=== PATIENT | female | born 1960 | race Hispanic/Latino ===

== ENCOUNTER 2017-08-26 23:33 | Inpatient (IN) | payer OTHER ==
[~2017-08-26] VITALS: Ht 152.4 cm; Wt 56.2 kg
[~2017-08-26 23:33] MED LIST: IRON PO; KEFLEX500 MG PO; MULTIVITAMINS1 EAC4 PO; TYLENOL WITH C1 EACH PO; VITAMIN C1000 MG PO; VITAMIN D PO; [UNRECOGNIZED DRUG - OTHER] PO
[2017-08-27] VITALS (7 sets, daily range): BP systolic 103–152; BP diastolic 57–83
[2017-08-27 00:15] LABS: BASOPHILS % 0.7 % (0.0-1.0); EOSINOPHILS # (AUTO) 0.1 (0.0-0.4); HEMATOCRIT 38.2 % (34.2-44.1); HEMOGLOBIN 12.2 g/dL (12.0-16.0); LYMPHOCYTES # (AUTO) 1.5 (1.0-3.2); LYMPHOCYTES % 26.6 % (18.0-39.1); MEAN CORPUSCULAR HGB CONC 31.9 g/dL (31-35); MEAN CORPUSCULAR VOLUME 97.2 fL (81-99); MONOCYTES # (AUTO) 0.4 (0.2-0.8); MONOCYTES % 6.1 % (4.4-11.3); NEUTROPHILS # (AUTO) 3.7 (2.1-6.9); NEUTROPHILS % 65.4 % (38.7-80.0); PLATELET COUNT 154 x10e3/uL (140-360); RED BLOOD COUNT 3.93 x10e6/uL (3.6-5.1)
[2017-08-27 00:19] LABS: INR 0.94
[2017-08-27 00:20] LABS: PARTIAL THROMBOPLASTIN TIME 29.9 seconds (23.8-35.5)
[2017-08-27 00:27] LABS: ALANINE AMINOTRANSFERASE 30 IU/L (0-55); ALBUMIN 3.6 g/dL (3.5-5.0); ALBUMIN/GLOBULIN RATIO 0.9 (0.8-2.0); ALKALINE PHOSPHATASE 91 IU/L (40-150); ANION GAP 12.3 mmol/L (8-16); BLOOD UREA NITROGEN 8 mg/dL (7-26); BUN/CREATININE RATIO 12 (6-25); CALCIUM 9.1 mg/dL (8.4-10.2); CARBON DIOXIDE 28 mmol/L (22-29); CHLORIDE 105 mmol/L (98-107); CREATINE KINASE 64 IU/L (29-168); CREATININE, SERUM 0.68 mg/dL (0.57-1.11); EST GLOMERULAR FILTRATION RATE > 60 ML/MIN (60-); GLUCOSE 94 mg/dL (74-118); POTASSIUM 3.3 mmol/L (3.5-5.1); SODIUM 142 mmol/L (136-145)
--- NOTE | 2017-08-27 00:45 | Diagnostic Imaging Report ---
CHEST SINGLE (PORTABLE), 08/27/2017 12:08 AM Technique: CHEST SINGLE (PORTABLE) Comparison: None available. Clinical history: Palpitations Findings: See Impression Impression: 1. Lines/Tubes: Right port tip at the cavoatrial junction. 2. Normal cardiomediastinal silhouette. 3. Mild linear right basilar atelectasis or scarring. No consolidation. 3. No pleural effusion or pneumothorax. Signed by: Dr Zandra King MD on 08/27/2017 12:41 AM
[2017-08-27 00:49] LABS: THYROID STIMULATING HORMONE 1.967 uIU/mL (0.350-4.940); TROPONIN I 0.001 ng/mL (0-0.300)
[2017-08-27] MEDS ORDERED: POTASSIUM CHLORIDE 20 MEQ TAB CR PO STA (01:37)
[2017-08-27] MEDS ORDERED: ONDANSETRON HCL INJ 2 MG/ML VIAL IV PRN ×2 (01:45→12:30)
[2017-08-27] MEDS: FAMOTIDINE 20 MG/2 ML VIAL IV SCH ×2 (02:33→12:46)
[2017-08-27] MEDS: ASPIRIN 81 MG ENTERIC COATED PO SCH (08:54)
[2017-08-27 10:45] LABS: CREATINE KINASE 51 IU/L (29-168)
[2017-08-27 10:52] LABS: TROPONIN I < 0.001 ng/mL (0-0.300)
[2017-08-27] MEDS ORDERED: TRAMADOL HCL 50 MG TAB PO PRN (12:30)
[2017-08-27] MEDS: ACETAMINOPHEN 325 MG TAB PO PRN (12:32)
[2017-08-27] MEDS ORDERED: SODIUM CHLORIDE 0.9% 250ML 250 ML ONE (12:40)
[2017-08-27 12:59] LABS: BILIRUBIN,URINE NEGATIVE (NEGATIVE); KETONES,URINE NEGATIVE (NEGATIVE); LEUKOCYTE ESTERASE ,URINE NEGATIVE (NEGATIVE); NITRITE,URINE NEGATIVE (NEGATIVE); PROTEIN,URINE DIPSTICK NEGATIVE (NEGATIVE); URINE UROBILINOGEN 0.2 mg/dL (0.2 - 1)
[2017-08-27 13:04] LABS: CLARITY,URINE SL CLOUDY (CLEAR); COLOR,URINE YELLOW (YELLOW)
[2017-08-27 13:16] LABS: EPITHELIAL CELLS,URINE FEW /LPF; RBC,URINE 0-5 /HPF (0-5); TRANSITIONAL EPI CELLS,URINE FEW; WBC,URINE (MAN) 0-5 /HPF (0-5)
--- NOTE | 2017-08-27 13:27 | Diagnostic Imaging Report ---
CT chest without enhancement CPT code: 74228 INDICATION: Fever TECHNIQUE: Thin collimation axial images obtained from the thoracic inlet to the level of the diaphragm without intravenous contrast. RADIATION DOSE: Total DLP: 425 mGy*cm Estimated effective dose: (DLP x 0.015 x size factor) mSv CTDIvol has been reviewed. It is below the limits set by the Radiation Protocol Committee (RPC). COMPARISON: Chest x-ray 08/26/2017. CHEST FINDINGS: Lymph nodes: There are enlarged left axillary lymph nodes measuring up to 2.5 x 3.0 cm. There are no enlarged right axillary lymph nodes. No enlarged supraclavicular, mediastinal, or hilar lymph nodes. Thyroid: Normal in size without mass in the visualized parenchyma.. Mediastinum: MediPort catheter terminates in the SVC. The heart is top normal in size. The ascending aorta is ectatic. There is a moderate sized hiatal hernia. No pericardial effusion. Coronary artery calcifications are present. Lungs: Right: Soft tissue mass in the superior middle lobe measures 1.9 x 1.9 cm. This abuts the minor fissure. There are multiple groundglass nodular opacities in the lower lobe with associated bronchial wall thickening. No disha consolidation. Left: No evidence of mass or infiltrate. A few foci of atelectasis are in the posterior costophrenic angle. Pleura: No pleural effusion or pleural based mass. Airways: Clear. ABDOMEN FINDINGS: Visualized portions of the liver, spleen, pancreas, gallbladder, adrenal glands, and kidneys are unremarkable. Bones: There are no lytic or blastic lesions. IMPRESSION: 1. Inflammatory appearing nodules in the right lower lobe with associated bronchial wall thickening suggestive of bronchopneumonia. 2. Left axillary lymphadenopathy and mass in the right middle lobe suggestive of metastatic disease. 3. Moderate sized hiatal hernia. Signed by: Dr. Jbe Fraire MD on 08/27/2017 1:24 PM
[2017-08-27] MEDS: AZITHROMYCIN 250MG/NS 100 ML 100 ML IV SCH (13:37)
[2017-08-27] MEDS: PIPER-TAZ 3.375 GM 100 ML IV SCH ×2 (14:11→23:24)
[2017-08-27 18:06] LABS: CREATINE KINASE MB 0.3 ng/mL (0.00-5.00); TROPONIN I 0.008 ng/mL (0-0.300)
--- NOTE | 2017-08-27 18:21 | History and Physical ---
CHIEF COMPLAINT: Palpitations and fever. HPI: Ms. Tin Nieves is a pleasant 57-year-old female. She has stage III breast cancer and is under treatment at [facility]. She presented with palpitations to the emergency room. She also has had some dizziness, so she decided to come to the emergency room. She is complaining of cough productive of greenish phlegm that started yesterday and also chills. She got her last chemotherapy 3 weeks ago, and she is on anastrozole as well. She denies any chest pain, nausea, vomiting, abdominal pain, focal weakness. REVIEW OF SYSTEMS GENERAL: Is having fever and chills. HEENT: Denies any head trauma or head injury. ENT: Denies any earache, nosebleed, throat pain. CV: Denies any chest pain. RESPIRATORY: Denies any shortness of breath. GI: Denies any nausea or vomiting. The rest of the review of systems are negative, except as in HPI. PAST MEDICAL HISTORY: Stage III breast cancer under treatment at [facility]. No other medical problems. PAST SURGICAL HISTORY: Left mastectomy. 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 She is a life-long nonsmoker. Does not drink. Lives with her . She has 2 children. PHYSICAL EXAMINATION VITAL SIGNS: Temperature 99.1, pulse 72, blood pressure 146/66, and temperature now is 101. SKIN: Warm and dry. HEENT: Head atraumatic and normocephalic. Pupils reactive. NECK: Supple. No JVD. Thyroid not enlarged. CHEST: Crackles bilaterally. Crackles on the right base. HEART: S1 and S2 audible. No murmurs, gallops or rubs. Regular. ABDOMEN: Soft, nontender and nondistended. EXTREMITIES: No clubbing, cyanosis or edema. NEUROLOGICAL: Awake and alert. Following commands. Responds to questions appropriately. LABS: White count of 5.7, hemoglobin 12.2 and platelets 154,000. Chemistry: Sodium 142, potassium 3.3, chloride 105, BUN 8, creatinine 0.6. AST and ALT 36 and 30. Troponin has been negative. EKG showing sinus bradycardia. No other abnormalities. Chest x-ray, I have reviewed the images. It is showing no focal infiltrate. ASSESSMENT AND PLAN: Ms. Tin Nieves is a 57-year-old female that presented with palpitations, now having cough productive of greenish phlegm, chills. She is under treatment for breast cancer at [facility]. Receiving chemotherapy. Last one was 3 weeks ago. She has not received any influenza vaccination. CURRENT PROBLEMS 1. Fever, chills, palpitations and cough: Chest x-ray is not suggestive of any clear-cut pneumonia. However, lower lobe pneumonia can be missed on chest x-ray. Possibility of influenza is also there. 2. Breast cancer, under treatment: Receiving chemotherapy. 3. Palpitations which has resolved. PLAN 1. I will start the patient on IV Zosyn and azithromycin to cover pneumonia. The patient is at risk of getting infection from resistant organism because she is getting chemotherapy. 2. ID consult. 3. Oncology consult. 4. Cardiology consult for palpitations. EKG initially showing sinus bradycardia. Job#: [id number] SC
[2017-08-28] VITALS (7 sets, daily range): BP systolic 115–142; BP diastolic 59–85
--- NOTE | 2017-08-28 05:08 | Consultation ---
DATE OF CONSULTATION: August 27, 2017 CARDIOLOGY CONSULTATION Thank you for this consultation. IMPRESSION 1. Palpitations. 2. Some atypical chest pain. 3. History of breast cancer, left mastectomy in 2016. Underwent chemotherapy. 4. Patient with metastasis of the liver. 5. Possible pneumonitis. 6. Hypertension. 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 History of hypertension. No history of myocardial infarction or symptoms of congestive heart failure. The palpitations happened yesterday. Patient is undergoing chemotherapy at [facility]. Patient has a mastectomy in 2016 at this hospital. Also, the patient has metastasis in the liver and possible pneumonitis in the lungs at this time. Health Claims Examiner is taking care of the pulmonary issues. At this time, evaluate cardiac status. No previous history of any cardiac issues. The patient had an echocardiogram done at [facility]. Clinically, no pericardial rub or congestive heart failure or 3rd heart sound or murmur. No pedal edema. EKG is normal. Laboratory evaluation shows WBC count of 5.72. Troponin is normal. Renal functions are normal. Electrolytes with potassium low and being replaced at this time. At this point, patient is quite stable. Because of the chemotherapy, some of the medications affect the LV function. I am going to order an echocardiogram. Also, the patient needs to have a Lexiscan stress test, which will be done on Tuesday if he is staying. We can do it in the hospital. If he is leaving, probably can do as an outpatient. I scheduled both of these tests at this time. The patient will continue present medications. There is no cardiac arrhythmia noted in this hospital at this time. Job#: [id number] OR
--- NOTE | 2017-08-28 05:17 | Consultation ---
DATE OF CONSULTATION: REASON FOR CONSULTATION: Fever. HPI: This patient who is a very pleasant 57-year-old female who has history of breast cancer with metastasis to the liver for a couple of years. She is on chemotherapy now. She is coming with 2 days' history of fever and chills. Her heart was beating fast, she said. Not feeling well. Patient came to the emergency room. She was admitted. She says she also has lung metastasis. Patient is currently lying in bed comfortably. Her main complaints are fever and chills. PAST MEDICAL HISTORY: Breast cancer stage 3, under chemotherapy. PAST SURGICAL HISTORY: Left mastectomy, Port-A-Cath on the right side, subcutaneous. ALLERGIES: NKA. SOCIAL HISTORY: There is no smoking, drug abuse, or alcohol use. FAMILY HISTORY: hypertension. REVIEW OF SYSTEMS HEENT: There is no headache, visual changes or hearing change. GI: There is no nausea, no vomiting, no diarrhea. CARDIAC: There is no arrhythmia. NEURO: No seizure activity. SKIN: There is no other rash. GENERAL: She just feels fever and chills and bad for last 2 days. LABS: White count 5.7, hemoglobin 12.2. Her sodium 142, potassium 3.3, creatinine 0.68. Patient was started on antibiotics. She is on Zosyn and azithromycin for presumptive pneumonia. She had a CT of the chest which showed inflammatory nodule in the right lower lobe with bronchial pneumonia. PHYSICAL EXAMINATION GENERAL: She is currently alert, oriented, does not seem to be in acute distress. VITALS: Stable, currently afebrile. HEENT: She does not appear icteric. NECK: Supple. CHEST: Few crackles at the bases. COR: S1 and S2. No S3 or S4, no murmur. ABDOMEN: Soft. Bowel sounds are present. No tenderness. No hepatosplenomegaly. EXTREMITIES: No edema. SKIN: There is no rash. The Port-A-Cath site, there is no erythema or edema. IMPRESSION: Fever and chills in a patient with breast cancer with metastasis. Concern about infection, pneumonia is a possibility. Will get the blood cultures. Continue with Zosyn, continue with azithromycin. We will see how she is going to do in the next couple of days. We will follow with you. Thank you for asking me to see this patient. Job#: [id number] CF
[2017-08-28] MEDS: PIPER-TAZ 3.375 GM 100 ML IV SCH ×3 (07:18→21:38)
[2017-08-28] MEDS: FAMOTIDINE 20 MG/2 ML VIAL IV SCH ×2 (07:27→14:10)
[2017-08-28 07:35] LABS: BASOPHILS % 0.2 % (0.0-1.0); EOSINOPHILS % 0.1 % (0.0-6.0); HEMATOCRIT 34.2 % (34.2-44.1); HEMOGLOBIN 11.3 g/dL (12.0-16.0); LYMPHOCYTES # (AUTO) 0.9 (1.0-3.2); LYMPHOCYTES % 9.2 % (18.0-39.1); MEAN CORPUSCULAR HEMOGLOBIN 31.3 pg (28-32); MEAN CORPUSCULAR VOLUME 94.7 fL (81-99); MONOCYTES # (AUTO) 0.4 (0.2-0.8); MONOCYTES % 4.3 % (4.4-11.3); NEUTROPHILS # (AUTO) 8.8 (2.1-6.9); PLATELET COUNT 122 x10e3/uL (140-360); RED BLOOD COUNT 3.61 x10e6/uL (3.6-5.1); RED CELL DISTRIBUTION WIDTH 16.4 % (11.7-14.4)
[2017-08-28 08:09] LABS: ANION GAP 11.3 mmol/L (8-16); BLOOD UREA NITROGEN 10 mg/dL (7-26); BUN/CREATININE RATIO 16 (6-25); CALCIUM 8.5 mg/dL (8.4-10.2); CARBON DIOXIDE 26 mmol/L (22-29); CHLORIDE 101 mmol/L (98-107); CREATININE, SERUM 0.63 mg/dL (0.57-1.11); EST GLOMERULAR FILTRATION RATE > 60 ML/MIN (60-); GLUCOSE 85 mg/dL (74-118); POTASSIUM 3.3 mmol/L (3.5-5.1); SODIUM 135 mmol/L (136-145)
[2017-08-28] MEDS: AZITHROMYCIN 250MG/NS 100 ML 100 ML IV SCH (08:19)
[2017-08-28] MEDS: ANASTROZOLE 1 MG TAB PO SCH (08:20)
[2017-08-28] MEDS: ASPIRIN 81 MG ENTERIC COATED PO SCH (08:20)
[2017-08-28 08:33] LABS: CHOL/HDL RATIO 3.8 (3.0-3.6)
[2017-08-28] MEDS: ACETAMINOPHEN 325 MG TAB PO PRN (12:14)
[2017-08-28] MEDS ORDERED: POTASSIUM CHLORIDE 20 MEQ TAB CR PO ONE (13:00)
--- NOTE | 2017-08-28 17:08 | Progress Note ---
DATE: August 28, 2017 CARDIOLOGY PROGRESS NOTE Patient is doing well. Patient moved from 1st floor to 2nd floor. Patient does not have any chest pain or palpitation, and the patient also getting antibiotics IV. Patient is a known patient with breast cancer. [facility], and she may be having metastasis of the liver, suspicion of the lung metastasis. I confine myself to cardiovascular system. The patient is not in congestive heart failure. I ordered an echocardiogram, still is not being done at this time. Patient not in acute congestive heart failure. I ordered a nuclear stress test, will be done on Tuesday. Job#: [id number] EV
[2017-08-29] VITALS (7 sets, daily range): BP systolic 121–156; BP diastolic 67–93
[2017-08-29] MEDS: FAMOTIDINE 20 MG/2 ML VIAL IV SCH ×2 (04:40→13:45)
[2017-08-29] MEDS: PIPER-TAZ 3.375 GM 100 ML IV SCH ×3 (05:21→22:06)
[2017-08-29] MEDS: ASPIRIN 81 MG ENTERIC COATED PO SCH (09:00)
[2017-08-29] MEDS: ANASTROZOLE 1 MG TAB PO SCH (09:09)
[2017-08-29] MEDS: AZITHROMYCIN 250MG/NS 100 ML 100 ML IV SCH (10:30)
[2017-08-29] MEDS ORDERED: SODIUM CHLORIDE 0.9% 250ML 250 ML ONE (14:28)
--- NOTE | 2017-08-29 22:23 | Progress Note ---
DATE: CARDIOLOGY PROGRESS NOTE Patient is seen in the room. Patient is awake and alert. Patient is quite stable. No chest pain. No tightness. Patient known case of breast cancer, getting chemotherapy, came with some atypical chest pain and shortness of breath and admitted to the hospital. Patient did not have a myocardial infarction. I am doing a nuclear stress test tomorrow. Patient's echocardiogram is not done. I believe it is going to be done tomorrow. We will continue present care. Job#: [id number]
[2017-08-30] VITALS (8 sets, daily range): BP systolic 111–164; BP diastolic 58–85
[2017-08-30] MEDS: FAMOTIDINE 20 MG/2 ML VIAL IV SCH ×2 (01:30→14:43)
[2017-08-30] MEDS: PIPER-TAZ 3.375 GM 100 ML IV SCH (05:54)
--- NOTE | 2017-08-30 06:16 | Diagnostic Imaging Report ---
EXAMINATION: CHEST 2 VIEWS INDICATION: Pneumonia COMPARISON: 08/26/2017 FINDINGS: TUBES and LINES: Right chest port is stable in good position. LUNGS: Lungs are well inflated. Lungs are clear. There is no evidence of pneumonia or pulmonary edema. PLEURA: No pleural effusion or pneumothorax. HEART AND MEDIASTINUM: The cardiomediastinal silhouette is unremarkable. BONES AND SOFT TISSUES: No acute osseous lesion. Soft tissues are unremarkable. UPPER ABDOMEN: No free air under the diaphragm. IMPRESSION: No acute thoracic abnormality. Signed by: Dr. Nile Boyer M.D. on 08/30/2017 6:12 AM
[2017-08-30] MEDS: ASPIRIN 81 MG ENTERIC COATED PO SCH (09:00)
[2017-08-30] MEDS: AZITHROMYCIN 250MG/NS 100 ML 100 ML IV SCH (09:00)
[2017-08-30] MEDS ORDERED: REGADENOSON 0.4 MG/5 ML SYR IV ONE (12:12)
--- NOTE | 2017-08-30 13:42 | Progress Note ---
DATE: CARDIOLOGY PROGRESS NOTE Patient is seen in the room. Patient does not have any significant chest pain. The patient came with palpitations. The patient has breast cancer. The patient had surgery in the past. At this time, she is undergoing chemotherapy. The patient came at this time because of palpitations and shortness of breath. Patient was advised to have a nuclear stress test, and that is being done today. It is not yet completed. If the nuclear test results are available and probably normal, maybe we will send her home tomorrow. The patient at this time has stable cardiac status. She did not have any myocardial infarction. Echo ejection fraction I do not know at this time because the echo is not done yet. It was ordered 2 days ago. Maybe they will have the people to do it today. Job#: [id number]
--- NOTE | 2017-08-30 14:30 | Progress Note ---
DATE: INFECTIOUS DISEASE PROGRESS NOTE Ms. Tin Nieves is doing better. She has no complaints. REVIEW OF SYSTEMS HEENT: Negative. PULMONARY: Negative. CARDIAC: Negative. : Negative. Her shortness of breath is better. Her cough is better. PHYSICAL EXAMINATION GENERAL: She is currently alert, oriented, does not seem to be in acute distress. VITAL SIGNS: Stable. Afebrile. HEENT: She does not appear icteric. NECK: Supple. CHEST: Clear. HEART: S1 and S2. No S3 or S4, no murmur. ABDOMEN: Soft. Bowel sounds present. No tenderness. EXTREMITIES: No edema. IMPRESSION: Fever better. Pneumonia better. From an infectious disease point of view, can switch to oral levofloxacin 500 mg p.o. daily for 5 more days. Will follow with you. Job#: [id number] MICHELL
[2017-08-30] MEDS: ANASTROZOLE 1 MG TAB PO SCH (14:43)
[2017-08-30] MEDS ORDERED: SODIUM CHLORIDE 0.9% 250ML 250 ML ONE (21:30)
[2017-08-30] MEDS: PIPER-TAZ 3.375 GM 50 ML IV SCH (21:53)
[2017-08-31] VITALS: BP 138/74
[2017-08-31] MEDS: FAMOTIDINE 20 MG/2 ML VIAL IV SCH ×2 (01:30→13:51)
[2017-08-31 04:00] VITALS: BP 144/86
[2017-08-31] MEDS: PIPER-TAZ 3.375 GM 50 ML IV SCH ×2 (06:13→14:38)
[2017-08-31 08:01] VITALS: BP 131/79
[2017-08-31] MEDS ORDERED: ASPIRIN EC81 MG PO (08:48)
[2017-08-31] MEDS ORDERED: AMOXICILLIN500 MG PO (08:48)
[2017-08-31] MEDS ORDERED: ARIMIDEX1 MG PO (08:48)
[2017-08-31] MEDS: ASPIRIN 81 MG ENTERIC COATED PO SCH (09:00)
[2017-08-31] MEDS: ANASTROZOLE 1 MG TAB PO SCH (09:00)
[2017-08-31] MEDS: AZITHROMYCIN 250MG/NS 100 ML 100 ML IV SCH (09:24)
[2017-08-31 09:50] LABS: ANION GAP 13.4 mmol/L (8-16); BLOOD UREA NITROGEN 8 mg/dL (7-26); BUN/CREATININE RATIO 12 (6-25); CALCIUM 8.6 mg/dL (8.4-10.2); CARBON DIOXIDE 24 mmol/L (22-29); CHLORIDE 108 mmol/L (98-107); CREATININE, SERUM 0.65 mg/dL (0.57-1.11); EST GLOMERULAR FILTRATION RATE > 60 ML/MIN (60-); GLUCOSE 122 mg/dL (74-118); POTASSIUM 3.4 mmol/L (3.5-5.1); SODIUM 142 mmol/L (136-145)
[2017-08-31 11:25] VITALS: BP 145/80
[2017-08-31 15:47] VITALS: BP 127/68
[2017-08-31] MEDS ORDERED: POTASSIUM CHLORIDE 20 MEQ TAB CR PO STA (18:31)
--- NOTE | 2017-08-31 20:10 | Progress Note ---
DATE: August 31, 2017 CARDIOLOGY PROGRESS NOTE The patient is doing well. The patient had echo . Nuclear test does not show any significant ischemia. LV of 60%. The patient came with palpitations. Enzymes are normal. A known patient with breast cancer, lumpectomy and also she had chemotherapy done. The patient undergoing chemotherapy treatment. Because of palpitations and atypical chest pain, nuclear test performed that did not show any significant ischemia. At this time, the patient can be discharged from cardiac point of view. Follow up with Dr. Agosto's office and also with primary care physician and cancer doctor. If any cardiac issues, she can call my office and if she wishes she can follow up with my office. The patient is to continue all present medications. Job#: [id number] GH
--- NOTE | 2017-08-31 22:13 | Discharge Summary ---
HOSPITAL COURSE: A [facility] 57-year-old woman admitted with palpitations and fever on August 28, 2017, through the emergency room. She has a history of cough, productive green sputum. Chest x-ray revealed pulmonary infiltrate. It was felt to be metastasis from breast cancer. She had liver and lung metastasis. Patient did have fever and chills and concomitant pneumonia was suspected. Patient has never smoked. She did have chest pain and underwent evaluation by Dr. Lezama, was felt to be noncardiac. She was treated with azithromycin and Zosyn. Seen in consultation by Dr. Flores, recommended oral therapy of pneumonia. She was discharged to be followed at [facility]. Discharged on amoxicillin, continue Arimidex, aspirin, and Pepcid. CJ BRYAN MD Job#: [id number]
--- NOTE | 2017-09-01 11:39 | Cardiology Report ---
DATE OF STUDY: August 30, 2017 NUCLEAR GATED MYOCARDIAL PERFUSION SCAN I supervised the test and interpreted this nuclear stress test. Myoview was injected 10 millicuries per resting protocol and 28 millicuries per stress protocol. Lexiscan was injected 0.4 mg intravenously as stress agent. Nuclear gated myocardial perfusion scan performed as per protocol in the nuclear medicine lab at [facility]. IMPRESSION: Normal gated myocardial perfusion scan. Left ventricular ejection fraction 60%. No evidence of ischemia or scar noted. Job#: [id number]
--- NOTE | 2017-09-10 14:14 | Consultation ---
DATE OF CONSULTATION: August 30, 2017 CONSULTATION TO: Dr. Suggs Ms. Castle is a 57-year-old female who has been referred to me for evaluation of breast cancer. The patient had presented with shortness of breath and bronchopneumonia. HISTORY OF PAST ILLNESS: History of stage-III left breast cancer treated at [facility]. History of metastases to the liver and the lungs. SOCIAL HISTORY: Noncontributory. FAMILY HISTORY: Noncontributory. ALLERGIES: NONE. MEDICATIONS AT THIS TIME 1. Zithromax. 2. Zosyn. 3. Pepcid. 4. Anastrozole. 5. Ondansetron. 6. Tramadol. REVIEW OF SYSTEMS HEENT: Normal. CARDIAC: Essentially normal. RESPIRATORY: Lung metastases. GI: Liver metastases. : Normal. MUSCULOSKELETAL: Normal. SKIN AND BREASTS: Stage-III left breast cancer treated. PHYSICAL EXAMINATION GENERAL: A rather thin-built female. Left axillary nodes. Left supraclavicular lymphadenopathy. HEART: Within normal limits. LUNGS: Clear. ABDOMEN: Obese. No hepatosplenomegaly. RECTAL AND VAGINAL: Examinations deferred. CENTRAL NERVOUS SYSTEM: Essentially normal. CHEST: Left mastectomy scar is seen. LABORATORY DATA: Sodium 135, potassium 3.3, chloride 101, CO2 26, BUN 10, creatinine 0.6. Hemoglobin 11.3, hematocrit 34.2, white count 10,100, platelets 122,000. Bilirubin 0.4, SGOT 36, SGPT 30, alkaline phosphatase 91. IMPRESSION 1. Stage-III left breast cancer being treated at [facility]. 2. Hypokalemia of 3.3. 3. 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 4. Bronchopneumonia. 5. Left axillary adenopathy. 6. Possible lung metastases. 7. History of metastases to the liver. PLAN: Give her best supportive care. Continue the antibiotics. Once stable, back to [facility] for followup. Job#: [id number]
== END 2017-08-31 19:57 | disposition home or self-care (01) | DRG 194 ==
LOC: ER 23:33 → ERHOLD 08-27 01:59 → IMCU 08-27 02:54 → OBSVTOIN 08-28 12:34 → MED/SURG3 08-28 13:25
PROVIDERS: ADMIT Internal Medicine; ATTEND Internal Medicine
DX: J18.0 Bronchopneumonia, unspecified organism (principal); C78.00 Secondary malignant neoplasm of unspecified lung; C78.7 Secondary malignant neoplasm of liver and intrahepatic bile duct; C50.912 Malignant neoplasm of unspecified site of left female breast; R77.1 Abnormality of globulin; E87.6 Hypokalemia; Z90.12 Acquired absence of left breast and nipple; I10 Essential (primary) hypertension; R07.89 Other chest pain
CPT/HCPCS: 36415; 71010; 71020; 71250; 78452; 80048; 80053; 80061; 81001; 82378; 82550; 82553; 82784; 83735; 84443; 84484; 85025; 85610; 85730; 87040; 87086; 87400; 93005; 93017; 93306; 96367; 99284; A9502; G0378; J2543; J7050

== ENCOUNTER 2018-04-26 21:59 | Observation (INO) | payer OTHER ==
[~2018-04-26] VITALS: Ht 157.5 cm; Wt 56.2 kg
[~2018-04-26 21:59] MED LIST changes: +AMOXICILLIN500 MG PO; +ARIMIDEX1 MG PO; +ASPIRIN EC81 MG PO
[2018-04-26 23:19] LABS: BASOPHILS % 0.5 % (0.0-1.0); EOSINOPHILS # (AUTO) 0.1 (0.0-0.4); EOSINOPHILS % 1.3 % (0.0-6.0); HEMATOCRIT 36.2 % (34.2-44.1); HEMOGLOBIN 11.3 g/dL (12.0-16.0); LYMPHOCYTES # (AUTO) 0.6 (1.0-3.2); LYMPHOCYTES % 14.1 % (18.0-39.1); MEAN CORPUSCULAR HEMOGLOBIN 31.4 pg (28-32); MEAN CORPUSCULAR HGB CONC 31.2 g/dL (31-35); MEAN CORPUSCULAR VOLUME 100.6 fL (81-99); MONOCYTES # (AUTO) 0.4 (0.2-0.8); NEUTROPHILS # (AUTO) 2.9 (2.1-6.9); NEUTROPHILS % 74.8 % (38.7-80.0); PLATELET COUNT 141 x10e3/uL (140-360); RED CELL DISTRIBUTION WIDTH 17.9 % (11.7-14.4)
[2018-04-26 23:26] LABS: BILIRUBIN,URINE NEGATIVE (NEGATIVE); CLARITY,URINE CLEAR (CLEAR); COLOR,URINE YELLOW (YELLOW); KETONES,URINE NEGATIVE (NEGATIVE); LEUKOCYTE ESTERASE ,URINE NEGATIVE (NEGATIVE); NITRITE,URINE NEGATIVE (NEGATIVE); PROTEIN,URINE DIPSTICK NEGATIVE (NEGATIVE); URINE UROBILINOGEN 0.2 mg/dL (0.2 - 1)
[2018-04-26 23:36] LABS: BACTERIA,URINE RARE /HPF; EPITHELIAL CELLS,URINE RARE /LPF
[2018-04-27] MEDS ORDERED: ASPIRIN 325 MG TAB PO ONE
[2018-04-27 00:15] LABS: ALANINE AMINOTRANSFERASE 103 IU/L (0-55); ALBUMIN 3.9 g/dL (3.5-5.0); ALBUMIN/GLOBULIN RATIO 1.2 (0.8-2.0); ALKALINE PHOSPHATASE 147 IU/L (40-150); ANION GAP 13.9 mmol/L (8-16); BLOOD UREA NITROGEN 8 mg/dL (7-26); BUN/CREATININE RATIO 11 (6-25); CALCIUM 9.8 mg/dL (8.4-10.2); CARBON DIOXIDE 29 mmol/L (22-29); CHLORIDE 103 mmol/L (98-107); CREATINE KINASE 75 IU/L (29-168); CREATININE, SERUM 0.71 mg/dL (0.57-1.11); EST GLOMERULAR FILTRATION RATE > 60 ML/MIN (60-); GLUCOSE 94 mg/dL (74-118); POTASSIUM 3.9 mmol/L (3.5-5.1); SODIUM 142 mmol/L (136-145)
[2018-04-27 00:20] LABS: INR 1.04; PROTHROMBIN TIME 12.8 seconds (11.9-14.5)
--- NOTE | 2018-04-27 01:19 | Diagnostic Imaging Report ---
EXAM: CHEST 2 VIEWS, PA and lateral INDICATION: Chest tightness COMPARISON: PA and lateral view of the chest August 30, 2017 FINDINGS: LINES/TUBES: Stable position of right subclavian tunneled chest port. LUNGS: Approximately 2.5 cm pulmonary nodule right middle lobe as seen on prior CT. PLEURA: No effusions or pneumothorax. HEART AND MEDIASTINUM: Normal size and contour. BONES AND SOFT TISSUES: Small hiatal hernia. Contrast is seen in the partially visualized colon. IMPRESSION: No interval change. Right middle lobe pulmonary nodule. Small hiatal hernia. Signed by: Dr. Heather Ross M.D. on 04/27/2018 1:15 AM
[2018-04-27] MEDS ORDERED: NITROGLYCERIN 0.4 MG SUBL SL PRN (02:45)
[2018-04-27] MEDS ORDERED: ONDANSETRON HCL INJ 2 MG/ML VIAL IV PRN (02:45)
[2018-04-27] MEDS ORDERED: FAMOTIDINE 20 MG TAB PO SCH ×2 (02:45→09:00)
[2018-04-27] MEDS ORDERED: MORPHINE SULFATE 2 MG/ML SYR IV PRN (02:45)
[2018-04-27] MEDS ORDERED: SODIUM CHLORIDE FLUSH 10 ML SYR INJ PRN (02:45)
[2018-04-27] MEDS ORDERED: SODIUM CHLORIDE 0.9% 1000ML 1,000 ML IV SCH (02:45)
[2018-04-27 03:22] VITALS: BP 152/67
[2018-04-27] MEDS ORDERED: FERROUS SULFAT325 MG PO (03:36)
[2018-04-27] MEDS: NITROGLYCERIN 2% OINT 1 GM PKT TOP SCH ×3 (06:08→18:20)
[2018-04-27 07:25] VITALS: BP 135/61
[2018-04-27 07:38] LABS: CREATINE KINASE 43 IU/L (29-168)
[2018-04-27 08:25] VITALS: BP 135/61
[2018-04-27] MEDS ORDERED: ASPIRIN 81 MG ENTERIC COATED PO SCH (09:00)
--- NOTE | 2018-04-27 11:01 | Consultation ---
DATE OF CONSULTATION: April 27, 2018 CARDIOLOGY CONSULTATION REQUESTING PHYSICIAN: Dr. Lasha Abbott. REASON FOR CONSULTATION: Chest pain. HISTORY OF PRESENT ILLNESS: This is a 58-year-old woman with history of breast cancer status post left mastectomy as well as chemotherapy and radiation with metastatic disease to the lung and liver, who presents with complaints of chest pressure. The patient reports she developed chest pressure yesterday evening around 8:30 p.m., lasting approximately an hour. The pain was 5/10 in severity and was not associated with any shortness of breath, nausea, or diaphoresis. The pain did not radiate and was better with ambulation. She denied any edema, orthopnea, PND, or lightheadedness. REVIEW OF SYSTEMS: Negative except as per HPI. PAST MEDICAL HISTORY: Breast cancer status post left mastectomy as well as chemotherapy and radiation, now with metastatic disease in the liver and lungs. PAST SURGICAL HISTORY: Mastectomy. ALLERGIES: IODINE. MEDICATIONS: Please see EMR. SOCIAL HISTORY: Denies tobacco, alcohol or illicit drugs. FAMILY HISTORY: Noncontributory. PHYSICAL EXAMINATION VITAL SIGNS: Temperature 97.5 degrees, pulse 51, respiratory rate 16, blood pressure 135/61, oxygen saturation 97% on room air. GENERAL: Well-developed, well-nourished woman. No acute distress. Awake and alert. HEENT: Normocephalic, atraumatic. Pupils equal. No scleral icterus. NECK: Supple. No thyromegaly or cervical lymphadenopathy. No carotid bruits. LUNGS: Clear to auscultation bilaterally. No wheezes or crackles. CARDIOVASCULAR: Normal rate. Regular rhythm. No murmur. Normal S1, S2. ABDOMEN: Soft, nontender. EXTREMITIES: No edema. NEURO: Nonfocal exam. EKG: Normal sinus rhythm, normal ECG. LABS: Sodium 142, potassium 3.9, chloride 102, CO2 29, BUN 8, creatinine 0.71, AST 219, ALT 103. Troponin less than 0.001. WBC 3.89, hemoglobin 11.3, hematocrit 36.2, platelets 141,000. D-dimer was 0.51. IMPRESSIONS 1. Chest pain. 2. Metastatic breast cancer with history of chemotherapy and radiation. 3. Elevated D-dimer. 4. Elevated liver function tests. RECOMMENDATIONS: Patient reports she had CT chest, abdomen, and pelvis at [facility] yesterday for staging. We will attempt to obtain these records. Given recent contrast exposure and iodine allergy, CT of the patient would not be optimal. Attempt to obtain these records. In the meantime, obtain bilateral lower extremity venous Dopplers to evaluate for any deep vein thrombosis given elevated D-dimer. Obtain echocardiogram. Patient indicates she was planning to travel out of the country later this evening. We will proceed with pharmacologic nuclear stress test for further evaluation. Thank you for this consult. We will continue to follow. Job#: [id number] LALITHA
[2018-04-27 11:39] VITALS: BP 141/73
[2018-04-27 18:22] VITALS: BP 157/71
[2018-04-27 19:30] LABS: CREATINE KINASE MB 0.6 ng/mL (0-5.0)
--- NOTE | 2018-04-27 19:37 | Cardiology Report ---
DATE OF STUDY: April 27, 2018 NUCLEAR STRESS REPORT PROCEDURE TITLE: Rest/stress single isotope SPECT imaging with exercise stress and gated SPECT imaging. INDICATIONS: Chest pain. PROCEDURE: The patient performed treadmill exercise using a Kana protocol, exercising for 8 minutes 32 seconds to stage 3 and completing estimated work load of 10.1 metabolic equivalents (METs). The test was terminated due to fatigue. The heart rate was 65 beats per minute at rest and increased to 146 beats per minute at peak exercise, which was 90% of maximum predicted heart rate. The rest blood pressure was 109/58 mmHg and increased to 240/120 mmHg at peak exercise, which was a hypertensive response. The patient developed nonlimiting chest pain during the procedure. The resting electrocardiogram demonstrated normal sinus rhythm with right ventricular conduction delay. There were no ST segment changes consistent with myocardial ischemia. Myocardial perfusion imaging was performed at rest following the injection of 10 mCi of tetrofosmin. At peak exercise, the patient was injected with 30 mCi of tetrofosmin. Exercise continued for 1 minute. Gated post stress tomographic imaging was performed. FINDINGS: The overall quality of the study is fair. Left ventricular cavity is noted to be normal sized on the rest and stress studies. SPECT images demonstrate homogenous tracer distribution throughout the myocardium. Gated SPECT imaging reveals normal myocardial thickening and wall motion. The left ventricular ejection fraction is calculated to be 60%. IMPRESSION: Normal EKG exercise treadmill stress test. Hypertensive response to exercise stress. Myocardial perfusion imaging is normal. Overall, left ventricular systolic function was normal without regional wall motion abnormalities. Job#: [id number] ULTRA Testing
[2018-04-27 19:54] VITALS: BP 142/68
== END 2018-04-27 20:01 | disposition home or self-care (01) ==
LOC: ER 21:59 → ERHOLD 04-27 03:13 → MED/SURG 04-27 03:24
DX: R07.2 Precordial pain (principal); R79.89 Other specified abnormal findings of blood chemistry; Z85.3 Personal history of malignant neoplasm of breast; Z85.05 Personal history of malignant neoplasm of liver; Z85.118 Personal history of other malignant neoplasm of bronchus and lung
CPT/HCPCS: 36415 ×2; 71046; 78452; 80053; 81001; 82550 ×2; 82553 ×2; 84484 ×2; 85025; 85379; 85610; 85730; 93005; 93017; 93306; 93970; 99284; A9502; G0378; J7030